=== PATIENT | female | born 1975 | race Caucasian/White ===

== ENCOUNTER → 2018-07-21 | Outpatient (CLI) | payer OTHER ==
--- NOTE | 2018-07-21 22:47 | MR ---
MRI CERVICAL SPINE: CLINICAL HISTORY: Cervicalgia per order. Headache with neck pain and stiffness for 12 months causing pain or weakness into both arms and fingers per patient. TECHNIQUE: Multiplanar, multisequence imaging of the cervical spine is performed without IV contrast. COMPARISON: None. FINDINGS: Motion artifact degradation is seen making imaging slightly suboptimal. Sagittal images of the cervical spine show the craniocervical junction to appear within normal limits. The cervical and upper thoracic spinal cord is normal in course, caliber, and signal. Vertebral alignment is straigh tened. The vertebral body and intravertebral disk heights are normal. No large posterior disc herni ations are seen on sagittal images. The bone marrow signal intensity is within normal limits. No sign ificant spurring is present. Axial images show C2-C3 level to appear within normal limits. Axial images at C3-C4 level mild right-sided neural foraminal narrowing due to tiny foraminal spur di sc complex. Axial images at C4-C5 level show right paracentral/foraminal spur disc complex effacing anterior thec al sac and causing [id number] right-sided neural foraminal narrowing. Axial images at C5-C6 level show more prominent right central/foraminal disc protrusion effacing vent ral thecal sac and causing moderate to advanced right-sided neural foraminal narrowing. Axial images at C6-C7 levels show foraminal disc protrusion effacing ventral thecal sac and causing a dvanced right-sided neural foraminal narrowing. Axial images at C7-T1 level are felt within normal limits. IMPRESSION: Straightening of the cervical spine with multilevel degenerative changes causing multilev el right-sided neural foraminal narrowing as detailed above.
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
== END ==
LOC: RADMRIMAIN 19:40
PROVIDERS: ATTEND Psychiatry & Neurology Pain Medicine
DX: M99.71 Connective tissue and disc stenosis of intervertebral foramina of cervical region (principal); M50.223 Other cervical disc displacement at C6-C7 level; M47.812 Spondylosis without myelopathy or radiculopathy, cervical region; M47.816 Spondylosis without myelopathy or radiculopathy, lumbar region; Z98.890 Other specified postprocedural states; Z79.82 Long term (current) use of aspirin; Z88.0 Allergy status to penicillin; Z88.8 Allergy status to other drugs, medicaments and biological substances; Z91.013 Allergy to seafood
CPT/HCPCS: 82565; 72141; 72158; 36415; A9585

== ENCOUNTER → 2018-07-22 | Outpatient (CLI) | payer OTHER ==
[2018-07-22 18:26] LABS: Blood Urea Nitrogen 19 mg/dL (7-17); Potassium 4.8 mmol/L (3.5-5.1)
== END | disposition home or self-care (01) ==
LOC: LABPAT 16:48
PROVIDERS: ATTEND Orthopaedic Surgery Hand Surgery
DX: Z01.818 Encounter for other preprocedural examination (principal); G56.00 Carpal tunnel syndrome, unspecified upper limb; E10.9 Type 1 diabetes mellitus without complications; Z79.4 Long term (current) use of insulin; Z01.812 Encounter for preprocedural laboratory examination; Z79.899 Other long term (current) drug therapy
CPT/HCPCS: 82565; 84132; 84520; 93005

== ENCOUNTER → 2018-07-26 | Day surgery (SDC) | payer OTHER ==
[2018-07-21 09:27] VITALS: BMI 47.4
[~2018-07-26] MED LIST: ACETAMINOPHEN TAB 500 MG TAB PO ONE; BUPIVACAINE (PF) 0.5% 30 ML VIAL SQ ONE; DEXAMETHASONE SOD PHOSPHATE 10 MG/ML 1 ML VIAL IV ONE; HYDROmorphone 1 MG/ML 1 ML SYRINGE IVP PRN; LACTATED RINGERS 1,000 ML IV ONE; LACTATED RINGERS 1,000 ML IV SCH; LIDOCAINE 1% 20 ML VIAL (10MG/ML) FOR IV START INTRADERMA PRN; LIDOCAINE 2% INJ 20 MG/ML SQ ONE; MIDAZOLAM 2 MG/2 ML VIAL ONE; ONDANSETRON 4 MG/2 ML VIAL IVP ONE; PROPOFOL 10 MG/ML 20 ML VIAL IV ONE; SCOPOLAMINE 1.5MG/72HR PATCH TRANSDERM ONE; fentaNYL (PF) 50 MCG/ML 2 ML AMP ONE
[2018-07-26 11:20] VITALS: RESP 18; TEMP 98
[2018-07-26 11:29] LABS: Glucose,Whole Blood 183 mg/dL (75-99)
[2018-07-26 14:14] VITALS: PULSE 95
[2018-07-26 14:50] VITALS: BP 116/73
--- NOTE | 2018-07-28 07:36 | OP ---
OPERATIVE REPORT SURGICAL DATE: 07/26/2018. PREOPERATIVE DIAGNOSIS: Left carpal tunnel syndrome. POSTOPERATIVE DIAGNOSIS: Left carpal tunnel syndrome. PROCEDURE: Left carpal tunnel release. GROSS PATHOLOGY: The procedure was complicated by obesity necessitating larger than average traction instruments and some difficulty encountered with visualization. At the completion, the release appeared to be satisfactory with no apparent complication. DESCRIPTION OF PROCEDURE: The patient was taken to the Operative Suite where a sedation was administered by the Department of Anesthesia. I then performed a local injection along the line of the incision with a combination of Marcaine and Xylocaine both without epinephrine. The hand was then prepped and draped in the usual manner. The arm was elevated, exsanguinated and the cuff was inflated to 250 mm of mercury. A longitudinal incision was made along the ring finger ray distal to the wrist crease. Dissection was taken through the skin and subcutaneous tissue, initially sharp through the skin and then blunt through the subcutaneous tissue to ensure protection of any potential terminal transverse branches of the palmar cutaneous nerve. The palmar fascia was then incised under direct vision longitudinally exposing the transverse carpal ligament. The transverse carpal ligament also was incised under direct vision. The dissection was then continued proximally beneath the skin under direct vision to release the distal forearm fascia. The median nerve was then reflected free of tenosynovium to ensure no adhesions. The tourniquet was then released. The wound was then irrigated and the skin was closed with a running 5-0 nylon suture. A soft bulky dressing was applied including a volar plaster splint holding the wrist in a neutral slightly extended position. The patient was then taken to the Recovery Room in satisfactory condition. MMODL / IJN: [id number] /
== END ==
LOC: OR 10:57
PROVIDERS: ATTEND Orthopaedic Surgery Hand Surgery
DX: G56.02 Carpal tunnel syndrome, left upper limb (principal); E66.9 Obesity, unspecified; Z68.42 Body mass index [BMI] 45.0-49.9, adult; E10.9 Type 1 diabetes mellitus without complications; Z79.4 Long term (current) use of insulin; Z79.899 Other long term (current) drug therapy
CPT/HCPCS: 64721; J2001; J2250; J1100; J0690; J2405; J3010; J2704

== ENCOUNTER 2018-08-31 10:05 | Emergency (ER) | payer OTHER ==
[2018-08-31 10:15] VITALS: BP 129/83; PULSE 97; RESP 18; TEMP 98.1
--- NOTE | 2018-08-31 10:50 | ED ---
General Adult HPI - General Stated complaint: back and neck pain Time Seen by Provider: 08/31/18 10:36 Source: patient Mode of arrival: wheelchair Limitations: no limitations - History of Present Illness Initial comments: 43-year-old female with a past medical history of chronic neck and back pain, diabetes, GERD presents to the emergency department for a chief complaint of worsening neck pain. Patient has had neck pain and back pain for years. However over the past few days patient states neck pain has worsened. She states up her back pain has worsened as well. She denies any worsening lower back pain. Denies headaches. She denies bladder or bowel changes or saddle anesthesia. Patient denies any numbness or weakness in the upper extremities. She denies any difficulty moving the right arm but states it is painful to lift her right arm above her head. She denies any significant difficulty moving the neck. She denies fevers or chills. Patient denies any recent injuries. Patient sees Dr. Magaña for this and is supposed to follow up with a surgeon at [facility] but has not done so yet. Patient states she has not had daily pain medication but thinks she now needs this. Patient has no other complaints at this time including shortness of breath, chest pain, abdominal pain, nausea or vomiting, headache, or visual changes. - Related Data Home Medications Medication Instructions Recorded Confirmed Atorvastatin [Lipitor] 10 mg PO DAILY 07/21/18 08/31/18 Cetirizine HCl [Zyrtec] 20 mg PO HS 07/21/18 08/31/18 Esomeprazole Magnesium [NexIUM] 20 mg PO Q48H 07/21/18 08/31/18 Insulin Glargine,Hum.rec.anlog 50 unit SQ HS 07/21/18 08/31/18 [Basaglar Kwikpen U-100] Lisinopril [Prinivil] 5 mg PO HS 07/21/18 08/31/18 metFORMIN HCL [Glucophage] 1,000 mg PO BID 07/21/18 08/31/18 Acetaminophen Tab [Tylenol Tab] 1,000 mg PO Q6HR PRN 08/31/18 08/31/18 Ciprofloxacin-Dexameth [Ciprodex 4 drops RIGHT EAR BID PRN 08/31/18 08/31/18 Otic Susp] Estrogens, Conjugated Cream 1 applicator VAGINAL MOTH 08/31/18 08/31/18 [Premarin Cream] Topiramate [Topamax] 50 mg PO BID 08/31/18 08/31/18 Allergies Allergy/AdvReac Type Severity Reaction Status Date / Time aspirin Allergy Swelling,na Verified 08/31/18 10:22 usea,rash clarithromycin [From Biaxin] Allergy Rash/Hives Verified 08/31/18 10:22 ibuprofen Allergy Rash/Hives Verified 08/31/18 10:22 loratadine [From Claritin] Allergy Rash/Hives Verified 08/31/18 10:22 Penicillins Allergy Rash/Hives Verified 08/31/18 10:22 shellfish derived [Shellfish] Allergy Rash/Hives Verified 08/31/18 10:22 varenicline [From Chantix] Allergy "extremely Verified 08/31/18 10:22 violently angry" Review of Systems ROS Statement: Those systems with pertinent positive or pertinent negative responses have been documented in the HPI. ROS Other: All systems not noted in ROS Statement are negative. Past Medical History Past Medical History: Diabetes Mellitus, GERD/Reflux, Skin Disorder, Sleep Apnea /CPAP/BIPAP Additional Past Medical History / Comment(s): uses bipap,carpel tunnel rachel wrist ,rash left arm(comes and goes),steroid injections Jun 2018 History of Any Multi-Drug Resistant Organisms: None Reported Past Surgical History: Appendectomy, Back Surgery, Bladder Surgery, Ear Surgery , Hysterectomy, Orthopedic Surgery Additional Past Surgical History / Comment(s): rt knee scope, bladder suspension ,laparotomy,back x3(1-L5-S1 fusion),rt ear x3-implant present Past Anesthesia/Blood Transfusion Reactions: No Reported Reaction Past Psychological History: Depression Smoking Status: Current every day smoker Past Alcohol Use History: None Reported Past Drug Use History: None Reported - Past Family History Mother Family Medical History: No Reported History General Exam Limitations: no limitations General appearance: alert, in no apparent distress Head exam: Present: atraumatic, normocephalic, normal inspection Eye exam: Present: normal appearance, PERRL, EOMI. Absent: scleral icterus, conjunctival injection, periorbital swelling ENT exam: Present: normal exam, normal oropharynx, mucous membranes moist, TM's normal bilaterally, normal external ear exam Neck exam: Present: tenderness (Generalized tenderness to the neck especially to the right cervical trapezius muscle. There is some mild tenderness to the cervical spine.). Absent: full ROM (Patient is able to fully flex the neck and can't extend neck about 20. She has about 30 rotation to the right and left.) Respiratory exam: Present: normal lung sounds bilaterally. Absent: respiratory distress, wheezes, rales, rhonchi, stridor Cardiovascular Exam: Present: regular rate, normal rhythm, normal heart sounds. Absent: systolic murmur, diastolic murmur, rubs, gallop, clicks Extremities exam: Present: normal capillary refill (Capillary refill less than 2 seconds in upper extremities. Radial pulse 2+ in upper extremities and equal bilaterally.), other (Credit Relationship Manager strength 5 out of 5. Strength 5 out of 5 in upper extremities bilaterally.). Absent: full ROM (Patient has about 90 flexion and abduction and of bilateral upper extremities) Back exam: Present: tenderness (Mild tenderness noted to the upper thoracic spine and trapezius muscle.) Neurological exam: Present: alert, oriented X3, CN II-XII intact Psychiatric exam: Present: normal affect, normal mood Course Vital Signs 08/31/18 10:11 Temperature 98.1 F Pulse Rate 97 Respiratory 18 Rate Blood Pressure 129/83 O2 Sat by Pulse 99 Oximetry - Reevaluation(s) Reevaluation #1: 08/31/18 11:14 Patient had an MRI about one month ago, report was reviewed showing right neural foraminal narrowing. Medical Decision Making - Medical Decision Making 43-year-old female presents to the emergency department for worsening neck pain 3 days. Patient states she has chronic back pain and neck pain for years. She states her neck pain has worsened in the past few days. denies injuries. Patient has had an MRI and sees Dr. Magaña for this. She is supposed to follow -up with the [facility] surgeon. She denies numbness or tingling in the upper extremities or weakness. No neuro deficits on exam. Patient states she is ALLERGIC to Motrin so I could not give her Toradol. Patient was given morphine and Norflex. I did discuss that I cannot prescribe daily pain medications and she will have to follow up with Dr. Magaña for this. She will also follow-up with [facility] surgeon that she is supposed to see for this pain. Discussed returning here if she has any worsening symptoms including weakeness or numbness in the upper extremities Disposition Clinical Impression: Chronic neck pain Disposition: HOME SELF-CARE Condition: Good Instructions: Cervical Radiculopathy (ED), Neck Pain (ED) Additional Instructions: Please take Tylenol at home for pain. Please follow-up with your neurologist or primary care in 1-2 days. Please return to the emergency department if you have any worsening symptoms or weakness in the upper extremities. Is patient prescribed a controlled substance at d/c from ED?: No Referrals: Darya Watt DO [Primary Care Provider] - 1-2 days Adan Magaña MD [STAFF PHYSICIAN] - 1-2 days Time of Disposition: 11:14
[2018-08-31] MEDS ORDERED: ORPHENADRINE 30 MG/ML 2 ML VIAL IM STA (10:51)
[2018-08-31] MEDS ORDERED: MORPHINE SULFATE 4 MG/ML SYRINGE IM STA (10:51)
== END 2018-08-31 11:35 | disposition home or self-care (01) ==
LOC: EC 10:05
DX: G89.29 Other chronic pain (principal); M54.2 Cervicalgia; M54.9 Dorsalgia, unspecified; E11.9 Type 2 diabetes mellitus without complications; K21.9 Gastro-esophageal reflux disease without esophagitis; G47.30 Sleep apnea, unspecified; F17.200 Nicotine dependence, unspecified, uncomplicated; Z88.0 Allergy status to penicillin; Z88.1 Allergy status to other antibiotic agents; Z88.5 Allergy status to narcotic agent; Z88.6 Allergy status to analgesic agent; Z88.8 Allergy status to other drugs, medicaments and biological substances; Z91.013 Allergy to seafood; Z91.048 Other nonmedicinal substance allergy status; Z79.4 Long term (current) use of insulin; Z79.899 Other long term (current) drug therapy; Z99.89 Dependence on other enabling machines and devices; Z87.2 Personal history of diseases of the skin and subcutaneous tissue; Z98.1 Arthrodesis status
CPT/HCPCS: 99283; 96372 ×2; J2270; J2360

== ENCOUNTER → 2018-09-16 | Outpatient (CLI) | payer OTHER ==
--- NOTE | 2018-09-16 12:39 | CT ---
EXAMINATION TYPE: CT lumbar spine wo con DATE OF EXAM: 09/16/2018 COMPARISON: Correlation MRI 07/21/2018 HISTORY: 43 year-old female chronic pain, Lumbar Radiculopathy TECHNIQUE: Contiguous axial scanning of the lumbar spine without IV contrast. Coronal and sagittal re constructions performed. CT DLP: 2240.3 mGycm Automated exposure control for dose reduction was used. FINDINGS: Low-attenuation hepatic parenchyma suggesting underlying fatty infiltration. No prevertebral or parav ertebral soft tissue abnormality seen. Postsurgical changes of posterior and interbody fusion at L5-S1. There is residual posterior disc ost eophyte complex here along with facet arthropathy. Right-sided laminectomy change. The interbody devices eccentrically positioned on the right at the level of a spur disc complex which contributes to moderate right-sided neuroforaminal stenosis. No evident retropulsion into the spinal canal or neuroforamen. Posterior discussed by complex may contribute to mild canal stenosis. On the left, along with facet a rthropathy and a discussed by complex, there is moderate left neural foraminal stenosis. Facet arthropathy above the fusion at L3-L4 and L4-L5. This contributes to mild bilateral neural fora mason narrowing at L4-L5. Disc bulge and possible mild spinal canal stenosis at L4-L5. Vertebral body heights are preserved and alignment is maintained. IMPRESSION: 1. POSTERIOR AND INTERBODY FUSION AT L5-S1. RIGHT-SIDED LAMINECTOMY CHANGE. WHILE THE INTERBODY DEVIC E IS ECCENTRICALLY POSITIONED ON THE RIGHT, THERE IS NO EVIDENT RETROPULSION INTO THE SPINAL CANAL OR NEURAL FORAMEN. 2. RESIDUAL DISC OSTEOPHYTE COMPLEX AND HYPEROSTOTIC FACET CHANGES AT L5-S1 CONTRIBUTE TO MODERATE BI LATERAL NEUROFORAMINAL STENOSES AND POSSIBLY A MILD SPINAL CANAL STENOSIS AT THIS LEVEL. 3. FACET ARTHROPATHY L3-L4 AND L4-L5. MILD NARROWING OF THE BILATERAL L4-L5 NEUROFORAMEN. POSSIBLE FL LD CANAL NARROWING HERE WELL. 4. HEPATIC STEATOSIS.
== END | disposition home or self-care (01) ==
LOC: RADCTMAIN 11:49
PROVIDERS: ATTEND Orthopaedic Surgery Sports Medicine
DX: M99.73 Connective tissue and disc stenosis of intervertebral foramina of lumbar region (principal); M46.86 Other specified inflammatory spondylopathies, lumbar region; M25.78 Osteophyte, vertebrae; M54.16 Radiculopathy, lumbar region; Z98.1 Arthrodesis status
CPT/HCPCS: 72131

== ENCOUNTER → 2019-06-06 | Outpatient (CLI) | payer OTHER ==
[2019-06-06 16:11] LABS: Folate, Serum 8.4 ng/mL
[2019-06-06 16:19] LABS: T4, Free (Free Thyroxine) 1.1 ng/dL (0.80-1.80)
== END | disposition home or self-care (01) ==
LOC: LABWHC1 10:07
PROVIDERS: ATTEND Psychiatry & Neurology Pain Medicine
DX: E11.9 Type 2 diabetes mellitus without complications (principal); R53.82 Chronic fatigue, unspecified
CPT/HCPCS: 36415; 82607; 82746; 84207; 84425; 84439; 84443; 84481; 84591

== ENCOUNTER 2019-06-09 16:56 | Emergency (ER) | payer OTHER ==
[2019-06-09 17:09] VITALS: RESP 18
[2019-06-09] MEDS ORDERED: SODIUM CHLORIDE 0.9% 1,000 ML IV STA (18:02)
[2019-06-09] MEDS ORDERED: HYDROmorphone 0.5 MG/0.5 ML SYRINGE IVP STA (18:02)
[2019-06-09] MEDS ORDERED: FAMOTIDINE 20 MG/2 ML VIAL IV STA (18:03)
[2019-06-09 18:43] LABS: Basophils # (A) 0.1 k/uL (0-0.2); Basophils % (A) 1 %; Eosinophils # (A) 0.2 k/uL (0-0.7); Eosinophils % (A) 2 %; HCT 40.3 % (34.0-46.0); HGB 13.5 gm/dL (11.4-16.0); Lymphocytes # (A) 2.2 k/uL (1.0-4.8); Lymphocytes % (A) 26 %; MCH 28.5 pg (25.0-35.0); MCHC 33.4 g/dL (31.0-37.0); MCV 85.2 fL (80.0-100.0); Mean Platelet Volume 8.1; Monocytes # (A) 0.3 k/uL (0-1.0); Monocytes % (A) 4 %; Neutrophils # (A) 5.5 k/uL (1.3-7.7); Neutrophils % (A) 66 %; Platelet Count 301 k/uL (150-450); RBC 4.73 m/uL (3.80-5.40); RDW 13.7 % (11.5-15.5); WBC 8.4 k/uL (3.8-10.6)
[2019-06-09 18:45] LABS: Appearance,Urine Clear (Clear); Bacteria,Urine Moderate /hpf; Bilirubin,Urine Negative (Negative); Blood,Urine Negative (Negative); Color,Urine Light Yellow; Glucose,Urine (UA) Negative (Negative); Ketones,Urine 1+ (Negative); Leukocyte Esterase,Urine Trace (Negative); Mucus,Urine Rare /hpf; Nitrite,Urine Negative (Negative); PH, Urine 5.5 (5.0-8.0); Protein,Urine Negative (Negative); RBC,Urine 2 /hpf (0-5); Specific Gravity,Urine 1.007 (1.001-1.035); Squamous Epithelial Cell,Urine 5 /hpf (0-4); Urobilinogen,Urine <2.0 mg/dL (<2.0); WBC,Urine 2 /hpf (0-5)
[2019-06-09 18:51] LABS: ALT 60 U/L (9-52); AST 35 U/L (14-36); African American GFR (CKD) >90 (>60 ml/min/1.73 sqM); Albumin 4.5 g/dL (3.5-5.0); Alkaline Phosphatase 91 U/L (38-126); Amylase 60 U/L (30-110); Anion Gap 12 mmol/L; Blood Urea Nitrogen 14 mg/dL (7-17); Calcium 10.1 mg/dL (8.4-10.2); Carbon Dioxide 21 mmol/L (22-30); Chloride 108 mmol/L (98-107); Glucose 97 mg/dL (74-99); Potassium 3.9 mmol/L (3.5-5.1); Sodium 141 mmol/L (137-145); Total Bilirubin 0.5 mg/dL (0.2-1.3); Total Protein 7.6 g/dL (6.3-8.2)
--- NOTE | 2019-06-09 19:05 | CT ---
EXAMINATION TYPE: CT abdomen pelvis w con DATE OF EXAM: 06/09/2019 COMPARISON: None HISTORY: Upper Abdominal pain CT DLP: 2425.7 mGycm Automated exposure control for dose reduction was used. TECHNIQUE: Helical acquisition of images was performed from the lung bases through the pelvis. CONTRAST: Performed without Oral Contrast and with IV Contrast, patient injected with 100 mL of Isovue 300. FINDINGS: Lung bases are clear. There is no pleural effusion. Heart size is normal. There is probably some fatty infiltration of the liver. There is no focal liver defect. Spleen appear s normal. There is no pancreatic mass. Stomach appears normal. Gallbladder appears normal. Bile ducts are not dilated. There is 1.3 cm nodular density left adrenal gland. Kidneys have normal size and contour. There is no hydronephrosis. There is no evidence of renal mass. There is little contrast in the renal calyces on the delayed images. The ureters are not dilated. There is no retroperitoneal adenopathy. Bladder dis tends smoothly. There is no free fluid in the pelvis. There is no mesenteric edema. There is no ascit es or free air. There is no inguinal hernia. There is posterior fusion surgery at L5-S1. Lumbar verte bra have normal alignment. There is no compression fracture. I see no bony destructive process. There is no evidence of bowel obstruction.. IMPRESSION: THERE IS PROBABLY SOME FATTY INFILTRATION OF THE LIVER. NO DILATED DUCTS. POSSIBLE DECREASED RENAL FUNCTION WITH VERY LITTLE CONTRAST IN THE COLLECTING SYSTEMS ON THE DELAYED IMAGES. CLINICAL CORRELATION RECOMMENDED. Small left adrenal nodule unchanged compared to old CT scan of 09/16/2018.
[2019-06-09] MEDS ORDERED: MORPHINE SULFATE 4 MG/ML SYRINGE IVP STA (21:11)
[2019-06-09] MEDS ORDERED: ONDANSETRON 4 MG/2 ML VIAL IVP STA (21:11)
--- NOTE | 2019-06-09 21:20 | ED ---
General Adult HPI - General Chief complaint: Abdominal Pain Stated complaint: Not eating Time Seen by Provider: 06/09/19 17:54 Source: patient, RN notes reviewed Mode of arrival: ambulatory Limitations: no limitations - History of Present Illness Initial comments: 44-year-old female with a past medical history of GERD, diabetes mellitus presents to the emergency department for a chief complaint of epigastric pain. Patient states this has been ongoing for about a week. States that eating makes this worse so she has not been eating. States she has had some mild nausea and vomiting as well. States she had an ultrasound of the abdomen including the gallbladder done yesterday that was negative for cholecystitis. Patient states she saw her primary care provider today who sent her to the emergency department.Patient has no other complaints at this time including shortness of breath, chest pain, headache, or visual changes. - Related Data Home Medications Medication Instructions Recorded Confirmed Atorvastatin [Lipitor] 10 mg PO DAILY 07/21/18 06/09/19 Cetirizine HCl [Zyrtec] 20 mg PO HS 07/21/18 06/09/19 Esomeprazole Magnesium [NexIUM] 20 mg PO DAILY 07/21/18 06/09/19 Insulin Glargine,Hum.rec.anlog 54 unit SQ HS 07/21/18 06/09/19 [Basaglar Kwikpen U-100] Lisinopril [Prinivil] 5 mg PO DAILY 07/21/18 06/09/19 Estrogens, Conjugated Cream 1 applicator VAGINAL MOTH 08/31/18 06/09/19 [Premarin Cream] Topiramate [Topamax] 50 mg PO BID 08/31/18 06/09/19 Acetaminophen Tab [Tylenol Tab] 650 mg PO Q6H PRN 06/09/19 06/09/19 Alogliptin Benzoate [Alogliptin] 25 mg PO DAILY 06/09/19 06/09/19 Pregabalin [Lyrica] 75 mg PO BID 06/09/19 06/09/19 metFORMIN HCL 1,000 mg PO BID 06/09/19 06/09/19 Previous Rx's Medication Instructions Recorded Ondansetron [Zofran ODT] 4 mg PO Q8HR PRN #15 tab 06/09/19 Pantoprazole [Protonix] 40 mg PO DAILY #20 tablet. 06/09/19 Allergies Allergy/AdvReac Type Severity Reaction Status Date / Time aspirin Allergy Swelling,na Verified 06/09/19 17:56 usea,rash clarithromycin [From Biaxin] Allergy Rash/Hives Verified 06/09/19 17:56 ibuprofen Allergy Rash/Hives Verified 06/09/19 17:56 loratadine [From Claritin] Allergy Rash/Hives Verified 06/09/19 17:56 Penicillins Allergy Rash/Hives Verified 06/09/19 17:56 shellfish derived [Shellfish] Allergy Rash/Hives Verified 06/09/19 17:56 varenicline [From Chantix] Allergy "extremely Verified 06/09/19 17:56 violently angry" Review of Systems ROS Statement: Those systems with pertinent positive or pertinent negative responses have been documented in the HPI. ROS Other: All systems not noted in ROS Statement are negative. Past Medical History Past Medical History: Diabetes Mellitus, GERD/Reflux, Skin Disorder, Sleep Apnea/CPAP/BIPAP Additional Past Medical History / Comment(s): uses bipap,carpel tunnel racehl wrist,rash left arm(comes and goes),steroid injections Jun 2018 History of Any Multi-Drug Resistant Organisms: None Reported Past Surgical History: Appendectomy, Back Surgery, Bladder Surgery, Ear Surgery, Hysterectomy, Orthopedic Surgery Additional Past Surgical History / Comment(s): rt knee scope, bladder suspension,laparotomy,back x3(1-L5-S1 fusion),rt ear x3-implant present Past Anesthesia/Blood Transfusion Reactions: No Reported Reaction Past Psychological History: Depression Smoking Status: Current every day smoker Past Alcohol Use History: None Reported Past Drug Use History: None Reported - Past Family History Mother Family Medical History: No Reported History General Exam Limitations: no limitations General appearance: alert, in no apparent distress Head exam: Present: atraumatic, normocephalic, normal inspection Eye exam: Present: normal appearance, PERRL, EOMI. Absent: scleral icterus, conjunctival injection, periorbital swelling ENT exam: Present: normal exam, mucous membranes moist Neck exam: Present: normal inspection. Absent: tenderness, meningismus, lymphadenopathy Respiratory exam: Present: normal lung sounds bilaterally. Absent: respiratory distress, wheezes, rales, rhonchi, stridor Cardiovascular Exam: Present: regular rate, normal rhythm, normal heart sounds. Absent: systolic murmur, diastolic murmur, rubs, gallop, clicks GI/Abdominal exam: Present: soft, tenderness (Tenderness noted across the upper abdomen, no lower abdominal tenderness.), normal bowel sounds. Absent: distended, guarding, rebound, rigid Neurological exam: Present: alert Course Vital Signs 06/09/19 06/09/19 17:06 19:59 Temperature 97.9 F Pulse Rate 94 74 Respiratory 18 18 Rate Blood Pressure 126/84 108/63 O2 Sat by Pulse 100 96 Oximetry Medical Decision Making - Medical Decision Making 44-year-old female presents for abdominal pain. States is worse after eating. Admits to nausea vomiting as well. Currently takes Nexium daily. Vitals are stable. On exam patient has generalized upper epigastric and upper abdominal tenderness. Negative ultrasound outpatient of the gallbladder that showed mild hepatomegaly. CBC and CMP are unremarkable. Urine negative for obvious infection. CT of the abdomen and pelvis was obtained that showed fatty of torsion of the liver without dilated ducts. Possible decreased renal function with very little contrast in the collecting systems however this is not indicated with lab work or clinically. Patient was given pain medication and reevaluated. Abdomen tenderness has improved significantly. Abdomen is soft. Patient does still have some mild pain and will be given morphine and Zofran. Patient would like to try Protonix instead Nexium. This will be sent to the pharmacy. Zofran will also be sent. Patient needs to follow up with GI which was stressed to her for upper endoscope. Patient prefers to do this outpatient. Patient will return if she has any worsening symptoms. - Lab Data Result diagrams: 06/09/19 18:22 06/09/19 18:22 Lab Results 06/09/19 06/09/19 06/09/19 Range/Units 18:22 18:22 18:22 WBC 8.4 (3.8-10.6) k/uL RBC 4.73 (3.80-5.40) m/uL Hgb 13.5 (11.4-16.0) gm/dL Hct 40.3 (34.0-46.0) % MCV 85.2 (80.0-100.0) fL MCH 28.5 (25.0-35.0) pg MCHC 33.4 (31.0-37.0) g/dL RDW 13.7 (11.5-15.5) % Plt Count 301 (150-450) k/uL Neutrophils % 66 % Lymphocytes % 26 % Monocytes % 4 % Eosinophils % 2 % Basophils % 1 % Neutrophils # 5.5 (1.3-7.7) k/uL Lymphocytes # 2.2 (1.0-4.8) k/uL Monocytes # 0.3 (0-1.0) k/uL Eosinophils # 0.2 (0-0.7) k/uL Basophils # 0.1 (0-0.2) k/uL Sodium 141 (137-145) mmol/L Potassium 3.9 (3.5-5.1) mmol/L Chloride 108 H (98-107) mmol/L Carbon Dioxide 21 L (22-30) mmol/L Anion Gap 12 mmol/L BUN 14 (7-17) mg/dL Creatinine 0.87 (0.52-1.04) mg/dL Est GFR (CKD-EPI)AfAm >90 (>60 ml/min/1.73 sqM) Est GFR (CKD-EPI)NonAf 82 (>60 ml/min/1.73 sqM) Glucose 97 (74-99) mg/dL Plasma Lactic Acid Sandro 1.1 (0.7-2.0) mmol/L Calcium 10.1 (8.4-10.2) mg/dL Total Bilirubin 0.5 (0.2-1.3) mg/dL AST 35 (14-36) U/L ALT 60 H (9-52) U/L Alkaline Phosphatase 91 (38-126) U/L Total Protein 7.6 (6.3-8.2) g/dL Albumin 4.5 (3.5-5.0) g/dL Amylase 60 (30-110) U/L Lipase 171 (23-300) U/L Urine Color Urine Appearance (Clear) Urine pH (5.0-8.0) Ur Specific Olin (1.001-1.035) Urine Protein (Negative) Urine Glucose (UA) (Negative) Urine Ketones (Negative) Urine Blood (Negative) Urine Nitrite (Negative) Urine Bilirubin (Negative) Urine Urobilinogen (<2.0) mg/dL Ur Leukocyte Esterase (Negative) Urine RBC (0-5) /hpf Urine WBC (0-5) /hpf Ur Squamous Epith Cells (0-4) /hpf Urine Bacteria (None) /hpf Urine Mucus (None) /hpf 06/09/19 Range/Units 18:22 WBC (3.8-10.6) k/uL RBC (3.80-5.40) m/uL Hgb (11.4-16.0) gm/dL Hct (34.0-46.0) % MCV (80.0-100.0) fL MCH (25.0-35.0) pg MCHC (31.0-37.0) g/dL RDW (11.5-15.5) % Plt Count (150-450) k/uL Neutrophils % % Lymphocytes % % Monocytes % % Eosinophils % % Basophils % % Neutrophils # (1.3-7.7) k/uL Lymphocytes # (1.0-4.8) k/uL Monocytes # (0-1.0) k/uL Eosinophils # (0-0.7) k/uL Basophils # (0-0.2) k/uL Sodium (137-145) mmol/L Potassium (3.5-5.1) mmol/L Chloride (98-107) mmol/L Carbon Dioxide (22-30) mmol/L Anion Gap mmol/L BUN (7-17) mg/dL Creatinine (0.52-1.04) mg/dL Est GFR (CKD-EPI)AfAm (>60 ml/min/1.73 sqM) Est GFR (CKD-EPI)NonAf (>60 ml/min/1.73 sqM) Glucose (74-99) mg/dL Plasma Lactic Acid Sandro (0.7-2.0) mmol/L Calcium (8.4-10.2) mg/dL Total Bilirubin (0.2-1.3) mg/dL AST (14-36) U/L ALT (9-52) U/L Alkaline Phosphatase (38-126) U/L Total Protein (6.3-8.2) g/dL Albumin (3.5-5.0) g/dL Amylase (30-110) U/L Lipase (23-300) U/L Urine Color Light Yellow Urine Appearance Clear (Clear) Urine pH 5.5 (5.0-8.0) Ur Specific Olin 1.007 (1.001-1.035) Urine Protein Negative (Negative) Urine Glucose (UA) Negative (Negative) Urine Ketones 1+ H (Negative) Urine Blood Negative (Negative) Urine Nitrite Negative (Negative) Urine Bilirubin Negative (Negative) Urine Urobilinogen <2.0 (<2.0) mg/dL Ur Leukocyte Esterase Trace H (Negative) Urine RBC 2 (0-5) /hpf Urine WBC 2 (0-5) /hpf Ur Squamous Epith Cells 5 H (0-4) /hpf Urine Bacteria Moderate H (None) /hpf Urine Mucus Rare H (None) /hpf Disposition Clinical Impression: Epigastric pain Disposition: HOME SELF-CARE Condition: Good Instructions (If sedation given, give patient instructions): Epigastric Pain (ED) Additional Instructions: Please take medications as directed. Follow up with GI as soon as possible for possible endoscope. Return to the emergency department if you have any wo rsening symptoms. Prescriptions: Pantoprazole [Protonix] 40 mg PO DAILY #20 tablet. Ondansetron [Zofran ODT] 4 mg PO Q8HR PRN #15 tab PRN Reason: Nausea Is patient prescribed a controlled substance at d/c from ED?: No Referrals: Darya Watt DO [Primary Care Provider] - 1-2 days Jaja Lopez MD [STAFF PHYSICIAN] - 1-2 days Time of Disposition: 21:18
[2019-06-09 22:19] VITALS: BP 119/69; PULSE 83; TEMP 98.4
== END 2019-06-09 22:10 | disposition home or self-care (01) ==
LOC: EC 16:56
DX: K76.0 Fatty (change of) liver, not elsewhere classified (principal); R16.0 Hepatomegaly, not elsewhere classified; E11.9 Type 2 diabetes mellitus without complications; K21.9 Gastro-esophageal reflux disease without esophagitis; F32.9 Major depressive disorder, single episode, unspecified; F17.200 Nicotine dependence, unspecified, uncomplicated; G47.30 Sleep apnea, unspecified; Z99.89 Dependence on other enabling machines and devices; Z90.49 Acquired absence of other specified parts of digestive tract; Z90.710 Acquired absence of both cervix and uterus; Z79.4 Long term (current) use of insulin; Z79.890 Hormone replacement therapy; Z79.899 Other long term (current) drug therapy; Z88.6 Allergy status to analgesic agent; Z88.1 Allergy status to other antibiotic agents; Z88.8 Allergy status to other drugs, medicaments and biological substances; Z88.0 Allergy status to penicillin; Z91.013 Allergy to seafood
CPT/HCPCS: 36415; 80053; 82150; 83605; 83690; 85025; 81001; 74177; 99284; 96374; 96375 ×3; 96361; J2270; J2405; J1170; Q9967

== ENCOUNTER 2019-07-04 07:32 | Day surgery (SDC) | payer OTHER ==
[2019-06-30 11:56] VITALS: BMI 44.5
[~2019-07-04 07:32] MED LIST changes: -ACETAMINOPHEN TAB 500 MG TAB PO ONE; -BUPIVACAINE (PF) 0.5% 30 ML VIAL SQ ONE; -DEXAMETHASONE SOD PHOSPHATE 10 MG/ML 1 ML VIAL IV ONE; -HYDROmorphone 1 MG/ML 1 ML SYRINGE IVP PRN; -LACTATED RINGERS 1,000 ML IV ONE; -LIDOCAINE 2% INJ 20 MG/ML SQ ONE; -MIDAZOLAM 2 MG/2 ML VIAL ONE; -ONDANSETRON 4 MG/2 ML VIAL IVP ONE; -PROPOFOL 10 MG/ML 20 ML VIAL IV ONE; -SCOPOLAMINE 1.5MG/72HR PATCH TRANSDERM ONE; -fentaNYL (PF) 50 MCG/ML 2 ML AMP ONE
[2019-07-04 08:09] LABS: Glucose,Whole Blood 80 mg/dL (75-99)
[2019-07-04 08:11] VITALS: RESP 16; TEMP 97.7
[2019-07-04] MEDS ORDERED: LIDOCAINE 1% INJ 10MG/ML (20 ML MDV) ONE (08:28)
[2019-07-04] MEDS ORDERED: PROPOFOL 10 MG/ML 20 ML VIAL IV ONE (08:28)
[2019-07-04] MEDS ORDERED: MIDAZOLAM 2 MG/2 ML VIAL ONE (08:28)
--- NOTE | 2019-07-04 08:49 | P.PCN ---
Date of Procedure: 07/04/19 Description of Procedure: BRIEF HISTORY: 44-year-old female with a medical history significant for diabetes mellitus, GERD who presented to the hospital due to complaints of epigastric pain in May and is seen in follow-up for EGD due to complaints of nausea, epigastric abdominal pain and the description of her stomach heart after eating. Last EGD 3 years ago [facility] with possible gastritis findings per the patient's history. PROCEDURE PERFORMED: Esophagogastroduodenoscopy with biopsy. PREOPERATIVE DIAGNOSIS: Epigastric abdominal pain, GERD. ESTIMATED BLOOD LOSS: Minimal. IV sedation per anesthesia. PROCEDURE: After informed consent was obtained, the patient was brought into the endoscopy unit. IV sedation was administered by Anesthesia under continuous monitoring. Initially the Olympus GIF-190 video endoscope was inserted into the mouth. Esophagus intubated without any difficulty. It was gradually advanced into the stomach and duodenum and carefully examined. The bulb and the second part of the duodenum appeared normal, except for some mild punctate erythema suggestive of mild duodenitis with biopsies taken. The scope at this time was withdrawn to the stomach, adequately insufflated with air, and upon careful examination, mucosa of the antrum, body, cardia and the fundus appeared normal, except for some mild scattered erythema and superficial irritation in the antrum and body suggestive of mild gastritis with biopsies of the antrum and body taken. The scope was then withdrawn into the esophagus. The GE junction was located at 38 cm from the incisors and biopsies. The esophagus appeared normal. There were no erosions or ulcerations seen and the patient tolerated the procedure well. IMPRESSION: 1. Mild gastritis antrum and body, biopsied. 2. Mild duodenitis, biopsied. 3. GE junction biopsies. RECOMMENDATIONS: The findings of this examination were discussed with the patient and her [id number]. Okay to resume diet. Okay to resume medications. Await pathology from biopsies. Follow up in gastroenterology clinic as previously scheduled.
[2019-07-04 09:21] VITALS: BP 126/78; PULSE 73
== END 2019-07-04 09:40 | disposition home or self-care (01) ==
LOC: ORWHC2ENDO 07:32
PROVIDERS: ATTEND Internal Medicine
DX: K29.50 Unspecified chronic gastritis without bleeding (principal); K29.80 Duodenitis without bleeding; K21.9 Gastro-esophageal reflux disease without esophagitis; Z88.6 Allergy status to analgesic agent; Z88.8 Allergy status to other drugs, medicaments and biological substances; Z88.0 Allergy status to penicillin; I10 Essential (primary) hypertension; E78.5 Hyperlipidemia, unspecified; G47.33 Obstructive sleep apnea (adult) (pediatric); Z99.89 Dependence on other enabling machines and devices; Z79.4 Long term (current) use of insulin; Z79.899 Other long term (current) drug therapy
CPT/HCPCS: 88305; 43239; J2250; J2001; J2704

== ENCOUNTER → 2019-07-26 | Outpatient (CLI) | payer OTHER ==
--- NOTE | 2019-07-27 15:00 | MM ---
Reason for exam: screening (asymptomatic). History: Patient is postmenopausal. Family history of breast cancer in maternal aunt at age 40. Took hormonal contraceptives for 10 years. Taking estrogen for 10 years. Physical Findings: A clinical breast exam by your physician is recommended on an annual basis and results should be correlated with mammographic findings. MG Screening Mammo w CAD Bilateral CC and MLO view(s) were taken. No prior studies available for comparison. There are scattered fibroglandular densities. Benign appearing bilateral calcifications. No suspicious abnormality. ASSESSMENT: Benign, BI-RAD 2 RECOMMENDATION: Routine screening mammogram of both breasts in 1 year.
== END | disposition home or self-care (01) ==
LOC: RADMAMWWP 07:50
PROVIDERS: ATTEND Family Medicine
DX: Z12.31 Encounter for screening mammogram for malignant neoplasm of breast (principal)
CPT/HCPCS: 77067

== ENCOUNTER → 2019-10-26 | Outpatient (CLI) | payer OTHER ==
[2019-10-26 11:29] LABS: African American GFR (CKD) 103.9 (60.0-200.0); Anion Gap 8.6 mmol/L (4.00-12.00); BUN/Creat Ratio 22.5 Ratio (12.00-20.00); Calcium 10.3 mg/dL (8.7-10.3); Carbon Dioxide 26.4 mmol/L (21.6-31.8); Chol/HDL Ratio 3.51; LDL Cholesterol,Calculated 95.8 mg/dL (0.0-131.0); Non-African American GFR(CKD) 89.7 (60.0-200.0); Potassium 4.1 mmol/L (3.5-5.5); VLDL Calculation 27.2 mg/dL (5.00-40.00)
[2019-10-26 11:32] LABS: DHEA Sulfate 193.6 ug/dL (26.0-430.0)
[2019-10-26 13:20] LABS: Hemoglobin A1C 5.5 % (4.0-6.0)
[2019-10-26 18:22] LABS: Microalbumin Creatinine Ratio <30 mg/g Creat (0-30); Urine Creatinine 112.6 mg/dL
[2019-10-31 19:35] LABS: Metanephrine, Free <25 pg/mL (< OR = 57); Normetanephrine, Free 54 pg/mL (< OR = 148); Total, Free (MN + NMN) 54 pg/mL (< OR = 205)
== END | disposition home or self-care (01) ==
LOC: LABWHC1 06:59
PROVIDERS: ATTEND Internal Medicine
DX: E11.65 Type 2 diabetes mellitus with hyperglycemia (principal); D35.02 Benign neoplasm of left adrenal gland
CPT/HCPCS: 36415; 80048; 80061; 82024; 82043; 82088; 82533; 82570; 82627; 83036; 83835; 84244

== ENCOUNTER → 2020-01-24 | Outpatient (CLI) | payer OTHER ==
[2020-01-24 14:09] LABS: African American GFR (CKD) >90 (>60 ml/min/1.73 sqM); Blood Urea Nitrogen 21 mg/dL (7-17); Non-African American GFR(CKD) 90 (>60 ml/min/1.73 sqM)
--- NOTE | 2020-01-24 14:55 | CT ---
EXAMINATION TYPE: CT lumbar spine wo/w con DATE OF EXAM: 01/24/2020 COMPARISON: CT lumbar spine September 16, 2018. MRI lumbar spine July 21, 2018 HISTORY: lumbar fusion, acute injury-something popped with new acute on chronic pain CT DLP: 3114.2 mGycm Automated exposure control for dose reduction was used. CONTRAST: CT scan of the lumbar is performed without and with IV Contrast, patient injected with 100 mL of Isov ue 300. Enhanced CT of the lumbar spine was performed. Bone and soft tissue window settings are submitted as well as coronal and sagittal reconstructions. 5 lumbar type vertebra are redemonstrated. Redemonstration of posterior interpedicular rods and screw s transfixing L5-S1 level bilaterally. Alignment is stable and satisfactory. Persistent metallic disc spacer right L5-S1 aspect. Position unchanged from prior CT. Persistent ossific fusion or desired ar throdesis L5-S1 level best appreciated on coronal images. Vertebral body heights and disc space heigh ts above surgical levels stable and satisfactory. Spinal canal grossly preserved. Review of axial images shows persistent and mild broad-based left paracentral disc protrusion L4-L5 l evel effacing anterior thecal sac. Mild to moderate facet degenerative changes lower lumbar levels re demonstrated. Bilateral neural foramina remain patent. No significant change from prior studies. No suspicious enhancement is seen. Paraspinal muscle bulk is preserved. IMPRESSION: No acute findings seen. Postsurgical changes lumbosacral junction. Stable and satisfactor y alignment noted.
== END | disposition home or self-care (01) ==
LOC: RADCTMAIN 13:17
PROVIDERS: ATTEND Psychiatry & Neurology Neurology
DX: Z98.1 Arthrodesis status (principal)
CPT/HCPCS: 82565; 84520; 72133; 36415; Q9967

== ENCOUNTER → 2020-07-16 | Outpatient (CLI) | payer OTHER ==
[2020-07-16 09:33] LABS: African American GFR (CKD) >90 (>60 ml/min/1.73 sqM); Anion Gap 7 mmol/L; Blood Urea Nitrogen 17 mg/dL (7-17); Calcium 9.7 mg/dL (8.4-10.2); Carbon Dioxide 27 mmol/L (22-30); Chloride 108 mmol/L (98-107); Glucose 146 mg/dL (74-99); Non-African American GFR(CKD) 90 (>60 ml/min/1.73 sqM); Potassium 4.3 mmol/L (3.5-5.1); Sodium 142 mmol/L (137-145)
--- NOTE | 2020-07-16 17:59 | CT ---
EXAMINATION TYPE: CT abdomen wo/w con DATE OF EXAM: 07/16/2020 COMPARISON: CT abdomen pelvis 06/09/2019. CT lumbar spine 09/16/2018. HISTORY: Left adrenal gland neoplasm CT DLP: 2156.6 mGycm Automated exposure control for dose reduction was used. TECHNIQUE: Helical acquisition of images was performed from the lung bases through the top of iliac crest to include entire abdomen. CONTRAST: Performed with Oral Contrast and without and with IV Contrast utilizing adrenal mass protocol, patien t injected with 100 mL of Isovue 300. FINDINGS: LUNG BASES: Normal. LIVER/GB: Normal. PANCREAS: Normal. SPLEEN: Normal. ADRENALS: Redemonstrated left adrenal nodule measures 1.5 x 1.7 x 1.3 cm, with precontrast Hounsfield units 21, postcontrast Hounsfield units 69, and delayed contrast units 30, with an absolute washout of 81.3% consistent with benign adrenal adenoma. Size is unchanged versus 09/16/2018 CT lumbar spine comparison. Right adrenal gland normal. KIDNEYS: No hydronephrosis. Punctate nonobstructing renal calculus in the left lower pole. BOWEL: No obstruction or thickening. Colonic diverticulosis. No acute diverticulitis seen. LYMPH NODES: No lymphadenopathy. VASCULATURE: No abdominal aortic aneurysm. PERITONEUM: No free fluid or pneumoperitoneum. OSSEOUS STRUCTURES: Posterior fixation changes and interbody spacer device of L5-S1. IMPRESSION: 1. 1.7 cm left adrenal benign adenoma, unchanged in size versus 2018 comparison. 2. Nonobstructing punctate left renal calculus.
== END | disposition home or self-care (01) ==
LOC: RADCTMAIN 08:50
PROVIDERS: ATTEND Internal Medicine
DX: D35.02 Benign neoplasm of left adrenal gland (principal); N20.0 Calculus of kidney; E11.65 Type 2 diabetes mellitus with hyperglycemia
CPT/HCPCS: 80048; 74170; 36415; Q9967

== ENCOUNTER → 2020-12-26 | Outpatient (CLI) | payer OTHER ==
[2020-12-26 17:11] VITALS: BP 134/63; PULSE 85; RESP 16; TEMP 97.9; BMI 47.2
--- NOTE | 2020-12-26 17:22 | P.HPBAR ---
Bariatric H&P - History & Physicial H&P Date: 12/26/20 History & Physicial: Visit/CC: Initial Patient initial contact: Initial weight: 130.805 kg Initial weight in pounds: 288.38 Height: 5 ft 5.5 in Initial BMI: 47.2 Last weight: Current weight: 130.805 kg Current weight in pounds: 288.38 Current BMI: 47.2 [place] body weight (based on NIH guidelines): 57.833 kg Excess body weight loss: 0.0% The patient is a 45 year-old F who presents for Bariatric Assessment. DATE OF SERVICE: 12/26/2020 REASON FOR CONSULTATION: Initial bariatric evaluation. HISTORY OF PRESENT ILLNESS: Bernarda Nunez is a 45-year-old female who comes with long-standing morbid obesity. She comes in for persistent weight gain since her 2nd child. Her highest weight is 315 pounds. She has tried medical weight loss, weight watchers, keto diet, and 70 grams carb limits for 1 year. She has been eating mostly vegetables. She lost 50 punds at one time. Her mother has troubles with weight. 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 She had total knee replacement in April 2020. She is a diabetic fo 26 years. She had gestational diabetes and 1 year latter was diagnosed with diabetes 25 years ago. She has heartburn/reflux for 15 years. She takes Prilosec daily. She had an EGD 1 year ago. She saw gastroenterology doctors where she had nothing abnormal per her recollection. No reports of stomach cancer. No reports of esophageal cancer. She denies Crohns disease or ulcerative colitis in herself or her family. She has chronic diarrhea with a scope done 3 years ago. She still has her gallbladder. She is now constipated and have bowel movements once every three to 4 days ago. She has family history of gallbladder problem. She has troubles with her gallbladder. She reports osteoarthritis of the back, hips, knees and ankle pain. She has sleep apnea. She presents to me for the first time in consultation for management of her morbid obesity. At height of 5 feet 5.5 inches, her ideal body weight is 149 pounds. Her highest weight is 315 pounds, BMI 51.7. She comes in 288 pounds. Her body mass index is 47.3. She is 139 pounds overweight. PAST MEDICAL HISTORY: 1. Morbid obesity due to excess calories 2. Body mass index of 51.7, initial 3. Diabetes type 2, [id number], of 26 years 4. Hyperlipidemia 5. Hypertensive heart disease 6. Diabetic neuropathy 7. Gastroesophageal reflux disease 8. Obstructive sleep apnea 9. Osteoarthritis of the back 10. Osteoarthritis of the hips 11. Osteoarthritis of the knee 12. Osteoarthritis of the ankle PAST SURGICAL HISTORY: 1. Appendectomy 2. Bladder suspension 3. Hysterectomy 4. Lumbar sacral fusion 5. Ear surgery 6. Right ear implant 7. Right knee arthroscopy 8. Laparotomy 9. Right knee replacement HOME MEDICATIONS: Home Medications Medication Instructions Recorded Confirmed Atorvastatin [Lipitor] 10 mg PO DAILY 07/21/18 12/27/20 Cetirizine HCl [Zyrtec] 10 mg PO HS 07/21/18 12/27/20 lisinopriL [Prinivil] 5 mg PO DAILY 07/21/18 12/27/20 Alogliptin Benzoate [Alogliptin] 25 mg PO DAILY 06/09/19 12/27/20 Pregabalin [Lyrica] 75 mg PO BID 06/09/19 12/27/20 metFORMIN HCL 1,000 mg PO BID 06/09/19 12/27/20 Ciprofloxacin-Dexameth [Ciprodex 1 drops RIGHT EAR DIRECTED PRN 06/30/19 12/27/20 Otic Susp] Estradiol Cream [Estrace Cream 1 gm VAGINAL MOTH 06/30/19 12/27/20 0.01%] Dapagliflozin Propanediol [Farxiga] 5 mg PO DAILY 12/27/20 12/27/20 Liraglutide [Victoza 3-Byron] 0.6 mg SQ DAILY 12/27/20 12/27/20 Omeprazole [PriLOSEC] 40 mg PO DAILY 12/27/20 12/27/20 ALLERGIES: Allergies Allergy/AdvReac Type Severity Reaction Status Date / Time adhesive tape Allergy Rash/Hives Verified 12/27/20 14:02 aspirin Allergy Swelling,na Verified 12/27/20 14:02 usea,rash clarithromycin [From Biaxin] Allergy Rash/Hives Verified 12/27/20 14:02 ibuprofen Allergy Rash/Hives Verified 12/27/20 14:02 loratadine [From Claritin] Allergy Rash/Hives Verified 12/27/20 14:02 Penicillins Allergy Rash/Hives Verified 12/27/20 14:02 shellfish derived [Shellfish] Allergy Rash/Hives Verified 12/27/20 14:02 varenicline [From Chantix] Allergy "extremely Verified 12/27/20 14:02 violently angry" SOCIAL HISTORY: Past tobacco use. FAMILY HISTORY: No family history of ulcerative colitis disease or Crohn's disease. Family history of morbid obesity. No lupus in the family. No reports of stomach or esophageal cancer. She has family history of gallbladder problem. REVIEW OF ORGAN SYSTEMS: CONSTITUTIONAL: At height of 5 feet 5.5 inches, her ideal body weight is 149 pounds. Her highest weight is 315 pounds, BMI 51.7. She comes in 288 pounds. Her body mass index is 47.3. She is 139 pounds overweight. HEENT: Denies any active troubles with vision. Prior ear surgery. ENDOCRINE: No hypothyroidism. Has diabetes type 2, insulin-dependent with complications of neuropathy. CARDIOVASCULAR: Has hypertensive heart disease. Has hyperlipidemia RESPIRATORY: Has daytime somnolence. Has asthma. GASTROINTESTINAL: Denies any bright red blood per rectum. Has change in bowel habits. Has gastroesophageal reflux disease. GENITOURINARY: No recent blood in urine. Denies urinary hesitancy. MUSCULOSKELETAL: Has lower back pain and joint pain. Has osteoarthritis of the knees, back, hips, ankles NEURO: No headaches. No seizure disorders. Has neuropathy flex and hands PSYCH: No suicidal ideation. Denies depressive disorder RHEUMATOLOGIC: No lupus. No rheumatoid arthritis. HEMATOLOGIC: Denies any abnormal bleeding or bruising. SKIN: No rash. No skin cancer. PHYSICAL EXAM: VITAL SIGNS: Height 5 foot 5.5 inches, weight 288 pounds. BMI 47.3 Vital Signs Temp 97.9 F 12/26/20 17:07 Pulse 85 12/26/20 17:07 Resp 16 12/26/20 17:07 BP 134/63 12/26/20 17:07 Pulse Ox GENERAL: Well-developed in no acute distress. HEENT: No scleral icterus. Extraocular movements grossly intact. Hears conversational speech. No nasal drainage. NECK: Supple without lymphadenopathy. CHEST: Nonlabored respirations with equal bilateral excursions. CARDIOVASCULAR: Regular rate and regular rhythm. Distal 2+ pulses. ABDOMEN: Obese, soft, nontender, nondistended. MUSCULOSKELETAL: No clubbing, cyanosis. NEURO: No focal or lateralizing signs. Cranial nerves 2 through 12 grossly within normal limits. PSYCH: Appropriate affect. Alert and oriented to person, place and time. SKIN: Good skin turgor. Well perfused. ASSESSMENT: 1. Morbid obesity due to excess calories 2. Body mass index of 51.7, initial 3. Diabetes type 2, [id number], of 26 years 4. Hyperlipidemia 5. Hypertensive heart disease 6. Diabetic neuropathy 7. Gastroesophageal reflux disease 8. Obstructive sleep apnea 9. Osteoarthritis of the back 10. Osteoarthritis of the hips 11. Osteoarthritis of the knee 12. Osteoarthritis of the ankle 13. Gallbladder disorder 14. Chronic diarrhea PLAN: 1. Surgical options including a band, gastric bypass, sleeve gastrectomy were described in detail. Alternatives such as gastric balloon including duodenal switch were described. 2. The [place] bariatric surgical collaborative data and outcomes calculator were described with surgical options. 3. Recommend a bariatric metabolic panel to evaluate for micro- including macronutrient deficiencies. 4. Recommend evaluation and treatment for sleep apnea. 5. Dietary surveillance and counseling was reviewed. Increased protein intake over 65 grams daily advised. 6. Will need cardiac risk assessment. 7. Recommend medical risk assessment. 8. Psych assessment per insurance guidelines. 9. Recommend upper endoscopy. 10. Recommend 12-lead EKG. 11. Recommend urine nicotine testing for history of tobacco abuse disorder 12. Recommend urine drug screen 13. Recommend ultrasound of the right upper quadrant and HIDA scan for gallbladder disorder 14. May need choelcystectomy pending additional results. 15. Recommend repeat upper and lower scope for gastroesophageal reflux disease including change in bowel habits. 16. Recommend chest xray for additional workup of pulmonary disorders Thank you for this consultation. Past Medical History Past Medical History: Diabetes Mellitus, GERD/Reflux, Sleep Apnea/CPAP/BIPAP Additional Past Medical History / Comment(s): uses bipap, nerve pain rachel legs a nd hands History of Any Multi-Drug Resistant Organisms: None Reported Past Surgical History: Appendectomy, Back Surgery, Bladder Surgery, Ear Surgery, Hysterectomy, Orthopedic Surgery Additional Past Surgical History / Comment(s): rt knee scope, bladder suspension, laparotomy, back x3(1-L5-S1 fusion), rt ear x3-implant present Past Anesthesia/Blood Transfusion Reactions: No Reported Reaction Smoking Status: Former smoker - Past Family History Mother Family Medical History: No Reported History Surgical - Exam Vital Signs Temp Pulse Resp BP 97.9 F 85 16 134/63 12/26/20 17:07 12/26/20 17:07 12/26/20 17:07 12/26/20 17:07 Bariatric Checklist Checklist: Plan: Checklist: EGD: 1. Hiatal hernia: 2. H. Pylori: HgbA1c: Vitamin D: Smoking: Current every day smoker Primary care physician referral: Vivian Mckenzie Psychiatry clearance: Cardiology clearance: Sleep study: Diet journal: VTE risk score: VTE risk level: Rehab needs at discharge:
== END ==
LOC: BARWHC3 15:07
PROVIDERS: ATTEND Surgery Plastic and Reconstructive Surgery
DX: E66.01 Morbid (severe) obesity due to excess calories (principal); E11.9 Type 2 diabetes mellitus without complications; E78.5 Hyperlipidemia, unspecified; E11.40 Type 2 diabetes mellitus with diabetic neuropathy, unspecified; K21.9 Gastro-esophageal reflux disease without esophagitis; G47.33 Obstructive sleep apnea (adult) (pediatric); M47.9 Spondylosis, unspecified; M17.9 Osteoarthritis of knee, unspecified; M16.0 Bilateral primary osteoarthritis of hip; M19.079 Primary osteoarthritis, unspecified ankle and foot; K82.9 Disease of gallbladder, unspecified; R19.7 Diarrhea, unspecified; Z79.84 Long term (current) use of oral hypoglycemic drugs; Z88.0 Allergy status to penicillin; Z88.6 Allergy status to analgesic agent; Z87.891 Personal history of nicotine dependence; Z91.048 Other nonmedicinal substance allergy status; Z91.013 Allergy to seafood; Z68.42 Body mass index [BMI] 45.0-49.9, adult
CPT/HCPCS: 99203

== ENCOUNTER → 2020-12-27 | Outpatient (CLI) | payer OTHER ==
[2020-12-27 10:01] LABS: INR 0.9 (<1.2); Prothrombin Time 9.9 sec (9.0-12.0)
[2020-12-27 10:09] LABS: Partial Thromboplastin Time 21.5 sec (22.0-30.0)
[2020-12-27 15:52] LABS: HGB 13.2 g/dL (12.0-15.0); MCH 28.5 pg (27.0-32.0); MCHC 31.4 g/dL (32.0-37.0); MCV 90.7 fL (80.0-97.0); Mean Platelet Volume 11.5 fL (9.5-12.2); Platelet Count 291 X 10*3/uL (140-440); RBC 4.63 X 10*6/uL (4.10-5.20); RDW 13.7 % (11.5-14.5); WBC 6.19 X 10*3/uL (4.50-10.00)
[2020-12-27 20:15] LABS: African American GFR (CKD) 89.5 (60.0-200.0); Albumin 4.8 g/dL (3.80-4.90); Albumin/Globulin Ratio 2.18 (1.60-3.17); BUN/Creat Ratio 21.11 Ratio (12.00-20.00); Calcium 10.1 mg/dL (8.7-10.3); Chol/HDL Ratio 2.45; Globulin 2.2 g/dL (1.6-3.3); Magnesium 1.9 mg/dL (1.5-2.4); Non-African American GFR(CKD) 77.2 (60.0-200.0); Potassium 4.8 mmol/L (3.5-5.5); Total Bilirubin 0.5 mg/dL (0.3-1.2)
[2020-12-27 20:28] LABS: Folate, Serum 20.9 ng/mL
[2020-12-27 22:06] LABS: Hemoglobin A1C 7.1 % (4.0-6.0)
[2020-12-28 12:44] LABS: Zinc, Serum 72 ug/dL (60-130)
== END | disposition home or self-care (01) ==
LOC: LABWHC1 08:37
PROVIDERS: ATTEND Surgery Plastic and Reconstructive Surgery
DX: D50.8 Other iron deficiency anemias (principal); E44.0 Moderate protein-calorie malnutrition; K74.1 Hepatic sclerosis; N19 Unspecified kidney failure; K50.90 Crohn's disease, unspecified, without complications; E66.01 Morbid (severe) obesity due to excess calories
CPT/HCPCS: 36415; 80053; 80061; 82525; 82607; 82746; 83036; 83735; 83970; 84100; 84134; 84255; 84425; 84443; 84590; 84630; 85027; 85610; 85730; 93005

== ENCOUNTER → 2021-02-22 | Outpatient (CLI) | payer OTHER ==
--- NOTE | 2021-02-26 09:21 | MM ---
Reason for exam: screening (asymptomatic). Last mammogram was performed 1 year and 7 months ago. History: Patient is postmenopausal. Family history of breast cancer in maternal aunt at age 40. Took hormonal contraceptives for 10 years. Taking estrogen for 10 years. Physical Findings: A clinical breast exam by your physician is recommended on an annual basis and results should be correlated with mammographic findings. MG Screening Mammo w CAD Bilateral CC and MLO view(s) were taken. Prior study comparison: July 26, 2019, bilateral MG screening mammo w CAD. There are scattered fibroglandular densities. No significant changes when compared with prior studies. ASSESSMENT: Negative, BI-RAD 1 RECOMMENDATION: Routine screening mammogram of both breasts in 1 year.
== END | disposition home or self-care (01) ==
LOC: RADMAMWWP 11:30
PROVIDERS: ATTEND Family Medicine
DX: Z12.31 Encounter for screening mammogram for malignant neoplasm of breast (principal); Z78.0 Asymptomatic menopausal state; Z80.3 Family history of malignant neoplasm of breast
CPT/HCPCS: 77067

== ENCOUNTER → 2022-02-18 | Outpatient (CLI) | payer OTHER ==
--- NOTE | 2022-02-19 01:31 | MR ---
EXAMINATION TYPE: MR wrist LT wo con DATE OF EXAM: 02/18/2022 COMPARISON: None HISTORY: Left wrist pain/swelling after heavy lifting 3 mos ago. Multiplanar multi echo imaging of the left wrist with no contrast. Distal radius and ulna appear intact. Carpal bones appear intact. Intercarpal joint spaces are fairly normal. The flexor and extensor tendons of the wrist appear intact. There is slight increased joint fluid at the medial aspect of the carpus. There is some fluid adjacent to the extensor tendons of the mid carpus. No evidence of focal bone destruction. No evidence of soft tissue mass. The proximal met acarpals appear intact. There is increased fluid signal at the triangular cartilage. IMPRESSION: There is increased wrist joint fluid consistent with synovitis and also some involvement of the exten sor tendons of the carpus. There is increased fluid at the triangular cartilage consistent with a tea r. No fracture.
== END | disposition home or self-care (01) ==
LOC: RADMRIMAIN 07:58
PROVIDERS: ATTEND Family Medicine
DX: M24.132 Other articular cartilage disorders, left wrist (principal)